=== PATIENT | female | born 1945 | race Two or more races ===

== ENCOUNTER 2017-07-25 14:17 | Outpatient (CLI) | payer MEDICARE, OTHER ==
[~2017-07-25 14:17] MED LIST: BACTRIM SINGLE S1 EA ORAL; CALCIUM500 M3 PO; IBANDRONATE SO150 MG PO; IRON18 M1 PO; PROAIR HFA8.5 GM INH; VITAMIN D400 INTLU PO
[2017-07-25] MEDS ORDERED: OYSCO 500+D TA1 EAC1 PO (14:32)
[2017-07-25] MEDS ORDERED: FOSAMAX70 MG ORAL (14:32)
[2017-07-25] MEDS ORDERED: VITAMIN C500 M1 ORAL (14:32)
[2017-07-25] MEDS ORDERED: LEFLUNOMIDE10 MG PO (14:32)
[2017-07-25 14:33] VITALS: BP 130/74
--- NOTE | 2017-07-25 14:54 | GI Initial Consult Note ---
History of Present Illness General Date patient seen: Jul 25, 2017 Time patient seen: 14:45 Referring physician: DAVID JOSE Reason for Consultation: ANEMIA / COLONOSCOPY Present Illness HPI 72 year old female patient referred by Dr. Jose for routine colonoscopy screening. The patients last EGD/colonoscopy performed on 03/14/13, see summary below. She presents today with c/o of foul taste in her mouth everyday, but denies any acid reflux. Denies any weight loss or changes in dietary habits. Was recently dc'd off of iron pills because her anemia has stabilized. DATE OF PROCEDURE: 03/14/2013 SURGEON: LILLI ORANTES MD PROCEDURE: UPPER ENDOSCOPY WITH BIOPSY AND COLONOSCOPY WITH SNARE POLYPECTOMY AND BIOPSY. SUMMARY OF FINDINGS: 1. Gastritis status post biopsy. 2. One colonic polyp removed, see above for details. 3. Diverticulosis of the left colon. 4. Internal hemorrhoids. RECOMMENDATIONS: 1. Follow up biopsy results and treat accordingly. 2. Will recommend repeat colonoscopy in 5 years. Home Meds Reported Medications Alendronate Sodium* (FOSAMAX*) 70 Mg Tablet, 70 MG ORAL ONCE A WEEK, TAB 07/25/17 Ascorbic Acid* (VITAMIN C*) 500 Mg Tablet, 500 MG ORAL DAILY, #30 TAB 0 Refills 07/25/17 Leflunomide (LEFLUNOMIDE) 10 Mg Tablet, 10 MG PO DAILY, TAB 07/25/17 Calcium Carbonate/Vitamin D3 (OYSCO 500+D TABLET) 1 Each Tablet, 1 EACH PO DAILY , TAB 07/25/17 Discontinued Reported Medications Ibandronate Sodium (IBANDRONATE SODIUM) 150 Mg Tablet, 150 MG PO EVERY MONTH, TAB 11/20/13 Calcium Carbonate (CALCIUM) 500 Mg Tab.chew, 500 MG PO 03/14/13 Vitamin D (Vitamin D3) 400 Intlu Cap, 400 INTLU PO DAILY 03/14/13 Iron (IRON) 18 Mg Tablet, 18 MG PO 03/14/13 Discontinued Scripts Trimethoprim/Sulfamethoxazole (Bactrim 400-80 mg Tablet) 1 Ea Tab, 1 TAB ORAL TWICE A DAY for 5 Days, TAB Prov:Theresa Goode [employer] 10/26/15 Med list reviewed/reconciled: Yes Allergies: Coded Allergies: TRAMADOL (Verified Allergy, 03/14/13) vomiting Patient History History Provided By: Patient, Medical Record PMH Narrative Anemia RA Gastritis with history of H. pylori s/p tx in 2012 PSHx cholecystectomy hysterectomy with ovarian removal. Rt Breast lump Family History Narrative Sister, kidney CA Social History: Denies: smoking, alcohol use, drug use, other Review of Systems All Other Systems: negative except mentioned in HPI Physical Exam Vital Signs Date Time Temp Pulse Resp B/P (MAP) Pulse Ox O2 Delivery O2 Flow Rate FiO2 07/25/17 14:33 97.5 64 16 130/74 Sp02 EP Interpretation: reviewed General Appearance: well appearing, no apparent distress, alert Head: normocephalic EENT: PERRL/EOMI, normal ENT inspection Neck: supple Respiratory: normal breath sounds, no respiratory distress Cardiovascular: normal rate Gastrointestinal: normal inspection, non tender, soft Genitourinary: normal inspection Musculoskeletal: normal inspection Neurologic: normal inspection, alert, oriented x3, responsive Psychiatric: normal inspection, judgement/insight normal, memory normal Skin: normal inspection, normal color, no rash, warm/dry, palpation normal Lymphatic: normal inspection, no adenopathy GI: Plan Problems: (1) Breath, foul (2) GERD (gastroesophageal reflux disease) (3) Colonoscopy planned Plan anemia >> resolved, now off iron pills s/p EGD/colonoscopy in March 2013 H. Pylori positive s/p tx sour taste in mouth most likely from current medication consider OTC H2B if patient is symptomatic for acid reflux RTC prn repeat colon March [address] Orantes. Thank you for referring this patient, we will follow. Haven Orlando N.P. Jul 25, 2017 14:54
== END 2017-07-25 14:45 | disposition home or self-care (01) ==
LOC: PAN 14:17
DX: K21.9 Gastro-esophageal reflux disease without esophagitis (principal); R19.6 Halitosis; Z86.010 Personal history of colon polyps; K57.90 Diverticulosis of intestine, part unspecified, without perforation or abscess without bleeding; M06.9 Rheumatoid arthritis, unspecified; D64.9 Anemia, unspecified; Z90.49 Acquired absence of other specified parts of digestive tract; Z90.710 Acquired absence of both cervix and uterus; Z90.721 Acquired absence of ovaries, unilateral; Z80.51 Family history of malignant neoplasm of kidney
CPT/HCPCS: 99201

== ENCOUNTER 2017-10-30 11:59 | Emergency (ER) | payer MEDICARE, MEDICAID ==
[~2017-10-30] VITALS: Ht 152.4 cm; Wt 73.9 kg
[~2017-10-30 11:59] MED LIST changes: +FOSAMAX70 MG ORAL; +LEFLUNOMIDE10 MG PO; +OYSCO 500+D TA1 EAC1 PO; +VITAMIN C500 M1 ORAL
[2017-10-30] MEDS ORDERED: IBUPROFEN600 MG ORAL (12:11)
[2017-10-30 12:30] VITALS: BP 147/107
--- NOTE | 2017-10-30 12:39 | Emergency Room Report ---
History of Present Illness General Chief Complaint: Abdominal Pain Source: Patient Present Illness HPI Patient is 72 female presented after increased left-sided abdominal pain. Patient gradual onset of symptoms. Patient reports having recent fevers and chills. She had not been vomiting. She reports having some loose stools initially however this become normal. She denied recent antibiotic use. She had prior history of laparoscopic cholecystectomy as well as hysterectomy. Allergies: Coded Allergies: TRAMADOL (Verified Allergy, 03/14/13) vomiting Patient History Past Medical History: see triage record Reviewed Nursing Documentation: PMH: Agreed, PSxH: Agreed Nursing Documentation-PMH Hx Cancer: No Hx Gastrointestinal Problems: Yes Hx Neurological Problems: No Review of Systems All Other Systems: negative except mentioned in HPI Physical Exam Vital Signs Date Time Temp Pulse Resp B/P (MAP) Pulse Ox O2 Delivery O2 Flow Rate FiO2 10/30/17 12:03 99.1 114 18 135/81 96 Room Air Sp02 EP Interpretation: reviewed, normal General Appearance: normal inspection, well appearing, no apparent distress, alert, GCS 15, non-toxic Head: atraumatic ENT: normal ENT inspection, hearing grossly normal, normal voice Neck: normal inspection, full range of motion, supple, no bony tend Respiratory: normal inspection, lungs clear, normal breath sounds, no respiratory distress, no retraction, no wheezing Cardiovascular #1: regular rate, rhythm, no edema Gastrointestinal: normal inspection, normal bowel sounds, soft, no guarding, no hernia, no pulsatile mass, no rebound, tenderness - left lower abdomen Genitourinary: no CVA tenderness Musculoskeletal: normal inspection, back normal, normal range of motion Neurologic: normal inspection, alert, oriented x3, responsive, gum cook III-XII nml as tested, speech normal Psychiatric: normal inspection, judgement/insight normal, mood/affect normal Skin: normal inspection, normal color, no rash Medical Decision Making Diagnostic Impression: Primary Impression: Diverticulitis ER Course Patient presented for abdominal pain. Differential diagnoses included ischemic bowel, appendicitis, perforated viscus, abdominal aortic aneurysm, inferior myocardial infarction, viral gastroenteritis Because of complexity of patient's case laboratory testing and imaging studies were ordered. Laboratory testing was unremarkable. The urinalysis showed no evident infection. CT the head and pelvis read by radiology showed sigmoid diverticulitis. The patient was given prescription for oral pain medication she does not appear to require hospitalization at this time. Patient was advised to return if she began having increased pain persistent vomiting or other concerns. She is advised to followup with Dr. Lorenzo in the next few days Labs Test 10/30/17 12:50 10/30/17 14:36 White Blood Count 9.7 K/UL (4.8-10.8) Red Blood Count 4.21 M/UL (4.20-5.40) Hemoglobin 12.4 G/DL (12.0-16.0) Hematocrit 39.6 % (37.0-47.0) Mean Corpuscular Volume 94 FL (80-99) Mean Corpuscular Hemoglobin 29.6 PG (27.0-31.0) Mean Corpuscular Hemoglobin Concent 31.4 G/DL (32.0-36.0) Red Cell Distribution Width 13.2 % (11.6-14.8) Platelet Count 329 K/UL (150-450) Mean Platelet Volume 8.1 FL (6.5-10.1) Neutrophils (%) (Auto) 75.3 % (45.0-75.0) Lymphocytes (%) (Auto) 14.0 % (20.0-45.0) Monocytes (%) (Auto) 8.5 % (1.0-10.0) Eosinophils (%) (Auto) 1.5 % (0.0-3.0) Basophils (%) (Auto) 0.8 % (0.0-2.0) Prothrombin Time 10.0 SEC (9.30-11.50) Prothromb Time International Ratio 1.0 (0.9-1.1) Activated Partial Thromboplast Time 26 SEC (23-33) Sodium Level 139 MMOL/L (136-145) Potassium Level 4.0 MMOL/L (3.5-5.1) Chloride Level 102 MMOL/L (98-107) Carbon Dioxide Level 31 MMOL/L (21-32) Anion Gap 6 mmol/L (5-15) Blood Urea Nitrogen 13 mg/dL (7-18) Creatinine 0.9 MG/DL (0.55-1.30) Estimat Glomerular Filtration Rate mL/min (>60) Glucose Level 123 MG/DL (74-106) Lactic Acid Level 1.40 mmol/L (0.66-2.22) Calcium Level 8.9 MG/DL (8.5-10.1) Phosphorus Level 2.7 MG/DL (2.5-4.9) Magnesium Level 2.4 MG/DL (1.8-2.4) Total Bilirubin 0.3 MG/DL (0.2-1.0) Aspartate Amino Transf (AST/SGOT) 13 U/L (15-37) Alanine Aminotransferase (ALT/SGPT) 21 U/L (12-78) Alkaline Phosphatase 67 U/L (46-116) Total Creatine Kinase 38 U/L (26-308) Creatine Kinase MB < 0.5 NG/ML (0.0-3.6) Creatine Kinase MB Relative Index 1.3 Troponin I 0.000 ng/mL (0.000-0.056) Total Protein 8.0 G/DL (6.4-8.2) Albumin 3.5 G/DL (3.4-5.0) Globulin 4.5 g/dL Albumin/Globulin Ratio 0.8 (1.0-2.7) Urine Color Pale yellow Urine Appearance Clear Urine pH 8 (4.5-8.0) Urine Specific Britt 1.010 (1.005-1.035) Urine Protein Negative (NEGATIVE) Urine Glucose (UA) Negative (NEGATIVE) Urine Ketones Negative (NEGATIVE) Urine Occult Blood Negative (NEGATIVE) Urine Nitrite Negative (NEGATIVE) Urine Bilirubin Negative (NEGATIVE) Urine Urobilinogen Normal MG/DL (0.0-1.0) Urine Leukocyte Esterase Negative (NEGATIVE) Last Vital Signs Date Time Temp Pulse Resp B/P (MAP) Pulse Ox O2 Delivery O2 Flow Rate FiO2 10/30/17 12:03 99.1 114 18 135/81 96 Room Air Status: improved Disposition: HOME, SELF-CARE Condition: Stable Scripts Ciprofloxacin Hcl* (CIPROFLOXACIN HCL*) 500 Mg Tablet 500 MG ORAL Q12H, #14 TAB 0 Refills Prov: David Pham 10/30/17 Metronidazole* (FLAGYL*) 500 Mg Tablet 500 MG ORAL BID, #14 TAB Prov: David Pham 10/30/17 Dicyclomine Hcl* (BENTYL*) 10 Mg Capsule 10 MG ORAL FOUR TIMES A DAY, #20 CAP Prov: David Pham 10/30/17 David Pham Oct 30, 2017 12:39
[2017-10-30] MEDS ORDERED: Dicyclomine HCl 10mg/5ml oral soln ORAL ONE (13:15)
[2017-10-30 13:22] LABS: BASOPHILS % (AUTO) 0.8 % (0.0-2.0); EOSINOPHILS % (AUTO) 1.5 % (0.0-3.0); MEAN CORPUSCULAR HEMOGLOBIN 29.6 PG (27.0-31.0); MEAN CORPUSCULAR HGB CONC 31.4 G/DL (32.0-36.0); MEAN CORPUSCULAR VOLUME 94 FL (80-99); MEAN PLATELET VOLUME 8.1 FL (6.5-10.1); MONOCYTES % (AUTO) 8.5 % (1.0-10.0); NEUTROPHILS % (AUTO) 75.3 % (45.0-75.0); PLATELET COUNT 329 K/UL (150-450); RED BLOOD COUNT 4.21 M/UL (4.20-5.40); RED CELL DISTRIBUTION WIDTH 13.2 % (11.6-14.8); WHITE BLOOD COUNT 9.7 K/UL (4.8-10.8)
[2017-10-30 13:30] VITALS: BP 145/75
[2017-10-30 13:40] LABS: ANION GAP 6 mmol/L (5-15); CALCIUM 8.9 MG/DL (8.5-10.1); CARBON DIOXIDE 31 MMOL/L (21-32); CHLORIDE 102 MMOL/L (98-107); CREATININE 0.9 MG/DL (0.55-1.30); SODIUM 139 MMOL/L (136-145)
[2017-10-30 13:54] LABS: ALANINE AMINOTRANSFERASE 21 U/L (12-78); ALBUMIN/GLOBULIN RATIO 0.8 (1.0-2.7); ASPARTATE AMINO TRANSFERASE 13 U/L (15-37); CKMB < 0.5 NG/ML (0.0-3.6); MAGNESIUM 2.4 MG/DL (1.8-2.4); PHOSPHORUS 2.7 MG/DL (2.5-4.9)
[2017-10-30 14:50] LABS: APPEARANCE,URINE CLEAR; KETONES,URINE NEGATIVE (NEGATIVE); LEUKOCYTE ESTERASE ,URINE NEGATIVE (NEGATIVE); NITRITE,URINE NEGATIVE (NEGATIVE); PH,URINE 8 (4.5-8.0); PROTEIN,URINE NEGATIVE (NEGATIVE); UROBILINOGEN,URINE NORMAL MG/DL (0.0-1.0)
[2017-10-30] MEDS ORDERED: BENTYL10 MG ORAL (14:58)
[2017-10-30 15:00] VITALS: BP 149/74
[2017-10-30] MEDS ORDERED: METRONIDAZOLE500 MG ORAL (15:21)
[2017-10-30] MEDS ORDERED: CIPROFLOXACIN500 M2 ORAL (15:25)
[2017-10-30 15:57] VITALS: BP 148/86
[2017-10-30 16:01] VITALS: BP 148/86
--- NOTE | 2017-10-31 10:26 | Diagnostic Imaging Report ---
Indication: Abdominal pain Technique: Continuous helical transaxial imaging of the abdomen and pelvis was obtained from the lung bases to the pubic symphysis during intravenous contrast administration. Coronal 2-D reformats were also obtained. Study obtained in a Siemens sensation [address] Automatic Exposure Control was utilized. Total Dose length Product (DLP): 1001.[address] Dose Index Volume (CTDIvol): 19.75 mGy Comparison: 10/24/2015 Findings: There is thickening of the wall and perisigmoid soft tissue stranding consistent with inflammation and acute diverticulitis. There is no abscess identified. Extensive diverticula noted throughout. A single surgical clip is noted in the right lower quadrant likely associated with previous appendectomy. Urinary bladder is nondistended. There is no free fluid. Aortoiliac calcifications noted. Liver is low in attenuation. Cholecystectomy clips noted. No hydronephrosis demonstrated. IMPRESSION: Acute sigmoid diverticulitis. No abscess. Other findings as above. [facility] has communicated the preliminary results to the Emergency Department. Their findings are largely concordant with this report. The CT scanner at [facility] is accredited by the [employer] and the scans are performed using dose optimization techniques as appropriate to a performed exam including Automatic Exposure control.
--- NOTE | 2017-10-31 13:20 | Diagnostic Imaging Report ---
Indication: Dyspnea Comparison: None A single view chest radiograph was obtained. Findings: Lungs are clear. Heart is borderline enlarged. The aorta is ectatic. Bones are slightly osteopenic. IMPRESSION: No acute disease
--- NOTE | 2017-11-05 00:30 | Cardiology Report ---
APPROVED REPORT EKG Measurement Heart [id number] Sinus tachycardia Rightward axis Borderline ECG
== END 2017-10-30 15:41 | disposition home or self-care (01) ==
LOC: EMR 12:30
DX: K57.32 Diverticulitis of large intestine without perforation or abscess without bleeding (principal)
CPT/HCPCS: 36415; 71010; 74177; 80053; 81003; 82550; 82553; 83605; 83735; 84100; 84484; 85025; 85610; 85730; 86710; 87040; 93005; 99284; Q9967

== ENCOUNTER 2017-11-13 13:53 | Emergency (ER) | payer MEDICARE, MEDICAID ==
[~2017-11-13] VITALS: Ht 157.5 cm; Wt 74.8 kg
[~2017-11-13 13:53] MED LIST changes: +BENTYL10 MG ORAL; +CIPROFLOXACIN500 M2 ORAL; +IBUPROFEN600 MG ORAL; +METRONIDAZOLE500 MG ORAL
[2017-11-13 14:03] VITALS: BP 134/80
--- NOTE | 2017-11-13 14:12 | Emergency Room Report ---
History of Present Illness General Chief Complaint: Upper Respiratory Illness Source: Patient, Family Member Present Illness HPI 72-year-old female walked in with one week of cough. No associated fever or chills, no chest pain or shortness of breath. Son brought mother in because of audible wheezing since last night. No history of COPD or asthma. Patient has been on antibiotics and cough medicine and albuterol for 4 days from primary care doctor. No recent hospitalizations or admission. Patient up to date on vaccines. Allergies: Coded Allergies: TRAMADOL (Verified Allergy, 03/14/13) vomiting Patient History Past Medical History: see triage record Past Surgical History: none Pertinent Family History: none Social History: Denies: smoking, alcohol use, drug use Now: No Immunizations: UTD Reviewed Nursing Documentation: PMH: Agreed, PSxH: Agreed Nursing Documentation-PMH Hx Cancer: No Hx Gastrointestinal Problems: Yes Hx Neurological Problems: No Review of Systems All Other Systems: negative except mentioned in HPI Physical Exam Vital Signs Date Time Temp Pulse Resp B/P (MAP) Pulse Ox O2 Delivery O2 Flow Rate FiO2 11/13/17 14:03 Room Air Sp02 EP Interpretation: reviewed, normal General Appearance: normal inspection, well appearing, no apparent distress, alert, GCS 15, non-toxic Head: normocephalic, atraumatic Eyes: bilateral eye PERRL, bilateral eye EOMI ENT: normal ENT inspection, hearing grossly normal, normal pharynx, no angioedema, normal voice, TMs + canals normal, uvula midline, moist mucus membranes Neck: normal inspection, full range of motion, supple, thyroid normal, no meningismus, no bony tend Respiratory: normal inspection, lungs clear, normal breath sounds, no rhonchi, no respiratory distress, no retraction, no accessory muscle use, speaking full sentences, wheezing Cardiovascular #1: regular rate, rhythm, no edema, no JVD, normal capillary refill Gastrointestinal: normal inspection, normal bowel sounds, non tender, soft, no mass, no peritonitis, non-distended, no guarding, no hernia, no pulsatile mass Genitourinary: no CVA tenderness Musculoskeletal: normal inspection, back normal, normal range of motion, no calf tenderness, pelvis stable, Mendy's Sign negative Neurologic: normal inspection, alert, oriented x3, responsive, school janitor III-XII nml as tested, motor strength/tone normal, cerebellar normal, normal gait, speech normal Psychiatric: normal inspection, judgement/insight normal, mood/affect normal, no suicidal/homicidal ideation, no delusions Skin: normal inspection, normal color, no rash Lymphatic: normal inspection, no adenopathy Medical Decision Making Diagnostic Impression: Primary Impression: Upper respiratory infection Qualified Codes: J06.9 - Acute upper respiratory infection, unspecified Additional Impression: Bronchitis ER Course 72-year-old female with cough for one week, now with wheezing. Vital signs stable, no hypoxemia, afebrile, normotensive. Patient well-appearing, walked in to ER. No leukocytosis Labs otherwise unremarkable CXR negative for pneumonia feels better after nebulizer treatment already on antibiotics, and a cough medicine, and albuterol for wheezing no signs stable, afebrile Nonseptic appearing Has close care by family member at home Advise PMD followup in one to 2 days yo M F with DDX: Plan: Obtain labs, ua, ucx, ucg, CXR, EKG ER course: Patient has remained stable during ED stay. Disposition: Patient is to be discharged to home. Patient is instructed to follow up with their primary care doctor within 1-2 days. Strict return precautions discussed with patient such as fever, chills, worsening/severe pain, nausea, vomiting, which may indicate severe illness. Patient verbalizes understanding and agrees with plan. Please note that this Emergency Department Report was dictated using [employer] and gas lease pumper technology software, occasionally this can lead to erroneous entry secondary to interpretation by the dictation equipment Rhythm Strip Diag. Results EP Interpretation: yes Rate: 85 Rhythm: NSR, no PVC's, no ectopy Chest X-Ray Diagnostic Results Chest X-Ray Diagnostic Results : Chest X-Ray Ordered: Yes # of Views/Limited/Complete: 1 View Indication: Other - Wheezing EP Interpretation: Yes Interpretation: no consolidation, no effusion, no pneumothorax, no acute cardiopulmonary disease Impression: No acute disease Electronically Signed by: Dr Shadi Johnson MD Last Vital Signs Date Time Temp Pulse Resp B/P (MAP) Pulse Ox O2 Delivery O2 Flow Rate FiO2 11/13/17 14:03 Room Air Status: improved Disposition: HOME, SELF-CARE Condition: Improved SHADI JOHNSON M.D. Nov 13, 2017 14:12
[2017-11-13 14:27] LABS: BASOPHILS % (AUTO) 2.3 % (0.0-2.0); EOSINOPHILS % (AUTO) 10.7 % (0.0-3.0); HEMATOCRIT 35.3 % (37.0-47.0); HEMOGLOBIN 11.4 G/DL (12.0-16.0); LYMPHOCYTES % (AUTO) 18.2 % (20.0-45.0); MEAN CORPUSCULAR VOLUME 92 FL (80-99); MONOCYTES % (AUTO) 15.6 % (1.0-10.0); NEUTROPHILS % (AUTO) 53.2 % (45.0-75.0); PLATELET COUNT 326 K/UL (150-450); RED BLOOD COUNT 3.82 M/UL (4.20-5.40); RED CELL DISTRIBUTION WIDTH 13.4 % (11.6-14.8)
[2017-11-13] MEDS ORDERED: albuterol PO (14:30)
[2017-11-13] MEDS ORDERED: PHENERGAN6.25 MG/5 ORAL (14:30)
[2017-11-13] MEDS ORDERED: AMOX TR-K CLV1 EAC1 ORAL (14:30)
[2017-11-13] MEDS ORDERED: APRODINE TABLE1 EACH PO (14:31)
[2017-11-13 14:37] LABS: ANION GAP 10 mmol/L (5-15); BLOOD UREA NITROGEN 10 mg/dL (7-18); CALCIUM 7.5 MG/DL (8.5-10.1); CARBON DIOXIDE 26 MMOL/L (21-32); CHLORIDE 101 MMOL/L (98-107); CREATININE 0.9 MG/DL (0.55-1.30); POTASSIUM 3.9 MMOL/L (3.5-5.1); SODIUM 137 MMOL/L (136-145)
[2017-11-13 14:42] LABS: ALANINE AMINOTRANSFERASE 35 U/L (12-78); ALBUMIN 3.6 G/DL (3.4-5.0); ALBUMIN/GLOBULIN RATIO 0.8 (1.0-2.7); ALKALINE PHOSPHATASE 65 U/L (46-116); ASPARTATE AMINO TRANSFERASE 25 U/L (15-37); BILIRUBIN,TOTAL 0.2 MG/DL (0.2-1.0)
[2017-11-13] MEDS ORDERED: PREDNISONE20 MG ORAL (14:58)
[2017-11-13] MEDS ORDERED: VENTOLIN HFA18 GM INH (15:01)
[2017-11-13 15:12] VITALS: BP 134/80
[2017-11-13] MEDS ORDERED: Albuterol/Ipratropium 3ml neb HHN SCH (19:00)
--- NOTE | 2017-11-14 09:15 | Diagnostic Imaging Report ---
Indication: Reason For Exam: SOB Technique: One view of the chest Comparison: 10/30/2017 Findings: Lungs and pleural spaces are clear. Heart size is normal. Aorta is slightly tortuous and calcified. Findings are unchanged Impression: No acute process
== END 2017-11-13 15:12 | disposition home or self-care (01) ==
LOC: EMR 14:25
DX: J06.9 Acute upper respiratory infection, unspecified (principal); J40 Bronchitis, not specified as acute or chronic
CPT/HCPCS: 36415; 71010; 80053; 85025; 94640; 94664; 99283; J7512; J7620

== ENCOUNTER 2019-02-28 13:00 | Outpatient (CLI) | payer MEDICARE, MEDICAID ==
[~2019-02-28 13:00] MED LIST changes: +AMOX TR-K CLV1 EAC1 ORAL; +APRODINE TABLE1 EACH PO; +PHENERGAN6.25 MG/5 ORAL; +PREDNISONE20 MG ORAL; +VENTOLIN HFA18 GM INH; +albuterol PO
--- NOTE | 2019-02-28 15:17 | General Progress Note ---
Assessment/Plan Problem List: (1) Anemia ICD Codes: D64.9 - Anemia, unspecified SNOMED: 167421884 (2) Diverticulitis ICD Codes: K57.92 - Diverticulitis of intestine, part unspecified, without perforation or abscess without bleeding SNOMED: 396985000 (3) Abdominal pain ICD Codes: R10.9 - Unspecified abdominal pain SNOMED: 96492228 (4) GERD (gastroesophageal reflux disease) ICD Codes: K21.9 - Gastro-esophageal reflux disease without esophagitis SNOMED: 937837016 Diagnoses Results of Pharmacotherapy: plan EGD and colonoscopy Subjective ROS Limited/Unobtainable: Yes Allergies: Coded Allergies: TRAMADOL (Verified Allergy, 03/14/13) vomiting Objective General Appearance: alert EENT: normal ENT inspection Neck: supple Cardiovascular: normal rate Respiratory/Chest: lungs clear Abdomen: normal bowel sounds, non tender, soft Extremities: non-tender Carlo Zaldivar MD Feb 28, 2019 15:17
[2019-02-28 16:03] VITALS: BP 126/76
[2019-03-01] MEDS ORDERED: TYLENOL EXTRA500 MG ORAL (10:11)
[2019-03-01] MEDS ORDERED: AMLODIPINE BESYL5 MG ORAL (10:11)
[2019-03-01] MEDS ORDERED: OMEPRAZOLE40 M1 ORAL (10:11)
== END 2019-02-28 16:19 | disposition home or self-care (01) ==
LOC: PAN 13:00
DX: D64.9 Anemia, unspecified (principal); K57.92 Diverticulitis of intestine, part unspecified, without perforation or abscess without bleeding; R10.9 Unspecified abdominal pain; K21.9 Gastro-esophageal reflux disease without esophagitis; Z88.8 Allergy status to other drugs, medicaments and biological substances
CPT/HCPCS: 99212

== ENCOUNTER 2019-03-07 07:07 | Day surgery (SDC) | payer MEDICARE, MEDICAID ==
[2019-03-07] VITALS (9 sets, daily range): BP systolic 100–139; BP diastolic 62–79
[~2019-03-07] VITALS: Ht 149.9 cm; Wt 79.4 kg
[~2019-03-07 07:07] MED LIST changes: +AMLODIPINE BESYL5 MG ORAL; +OMEPRAZOLE40 M1 ORAL; +TYLENOL EXTRA500 MG ORAL
[2019-03-07] MEDS ORDERED: Midazolam 2mg/2ml Inj IVP PRN (07:45)
[2019-03-07] MEDS ORDERED: DiphenhydrAMINE 50mg/ml Inj IVP PRN (07:45)
[2019-03-07] MEDS ORDERED: LR 1000ml 1,000 ML IVLG SCH (07:45)
[2019-03-07] MEDS ORDERED: LORazepam Inj 2mg/ml 1ml IV PRN (07:45)
--- NOTE | 2019-03-07 07:45 | Anethesia Preoperative Eval ---
Anesthesia Pre-op PMH/ROS General Date of Evaluation: Mar 07, 2019 Anesthesiologist: Surya ASA Score: ASA 3 Mallampati Score Class I : Soft palate, uvula, fauces, pillars visible Class II: Soft palate, uvula, fauces visible Class III: Soft palate, base of uvula visible Class IV: Only hard plate visible Mallampati Classification: Class III Surgeon: Zen Diagnosis: ABdominal pain, GERD Surgical Procedure: EGD and colonoscopy Anesthesia History: none Family History: no anesthesia problems Allergies: Coded Allergies: TRAMADOL (Verified Allergy, 03/14/13) vomiting Medications: see eMAR Patient NPO?: Yes NPO Date: Mar 06, 2019 NPO Time: 22:00 Past Medical History Cardiovascular: Denies: HTN, CAD, SC, valve dz, arrhythmia, other Pulmonary: Denies: asthma, COPD, ALTON, other Gastrointestinal/Genitourinary: Reports: GERD, other - gastritis; Denies: CRI, ESRD Neurologic/Psychiatric: Denies: dementia, CVA, depression/anxiety, TIA, other Endocrine: Denies: DM, hypothyroidism, steroids, other HEENT: Reports: cataract (L); Denies: cataract (R), glaucoma, LUMBEE (L), LUMBEE (R), other Hematology/Immune: Reports: anemia - chronic; Denies: DVT, bleeding disorder, other Musculoskeletal/Integumentary: Reports: OA, RA, DJD; Denies: DDD, edema, other PSxH Narrative: lap yanira, lap appy right breast lumpectomy, ANDRZEJ/BSO Anesthesia Pre-op Phys. Exam Physician Exam see chart Constitutional: NAD Cardiovascular: RRR Respiratory: CTA Airway Exam Mallampati Score: Class III Anesthesia Pre-op A/P Labs see chart Studies Pre-op Studies: EKG - sr Risk Assessment & Plan Assessment: ASA III Plan: MAC Status Change Before Surgery: No Pre-Antibiotics Drug: N/A Katerine Giraldo MD Mar 07, 2019 07:45
[2019-03-07] MEDS ORDERED: LR 1000ml ONE (09:00)
[2019-03-07] MEDS ORDERED: Propofol 200mg/20ml IV ONE (09:00)
[2019-03-07] MEDS ORDERED: Lidocaine 1% MPF 10mg/ml 5ml ONE (09:00)
--- NOTE | 2019-03-07 09:07 | Short Stay Surgery H&P ---
History of Present Illness History of Present Illness Chief Complaint see recent office note DHRUV Hein is a 73 year old female who was admitted on for Abdominal Pain, Gerd Patient History Allergies: Coded Allergies: TRAMADOL (Verified Allergy, 03/14/13) vomiting Medication History Scheduled Alendronate Sodium* (Fosamax*), 70 MG ORAL ONCE A WEEK, (Reported) Amlodipine Besylate* (Amlodipine Besylate*), 5 MG ORAL DAILY, (Reported) Ascorbic Acid* (Vitamin C*), 500 MG ORAL DAILY, (Reported) Calcium Carbonate/Vitamin D3 ([place] 500+D Tablet), 1 EACH PO DAILY, (Reported) Leflunomide (Leflunomide), 10 MG PO DAILY, (Reported) Omeprazole (Omeprazole), 40 MG ORAL DAILY, (Reported) Scheduled PRN Acetaminophen* (Tylenol Extra Strength*), 1,000 MG ORAL Q8H PRN for Prn Headache /Temp > 101, (Reported) Discontinued Medications Albuterol Sulfate (Ventolin Hfa), 1 PUFF INH EVERY 6 HOURS Discontinued Reason: MD discontinued med Amoxicillin/Potassium Clav 500-125 Mg Tab* (Amox Tr-K Clv 500-125 Mg Tab*), 1 TAB ORAL TID, (Reported) Discontinued Reason: Therapy completed Ciprofloxacin Hcl* (Ciprofloxacin Hcl*), 500 MG ORAL Q12H Discontinued Reason: Therapy completed Dicyclomine Hcl* (Bentyl*), 10 MG ORAL FOUR TIMES A DAY Discontinued Reason: MD discontinued med Ibuprofen* (Motrin*), 400 MG ORAL TID, (Reported) Discontinued Reason: Pt stopped taking med Metronidazole* (Flagyl*), 500 MG ORAL BID Discontinued Reason: Therapy completed P-Ephed Hcl/Triprolidine Hcl (Aprodine Tablet), 1 EACH PO THREE TIMES A DAY, ( Reported) Discontinued Reason: MD discontinued med Prednisone* (Prednisone*), 40 MG ORAL DAILY Discontinued Reason: MD discontinued med Promethazine/Dextromethorphan (Promethazine-Dm Syrup), 1 TSP ORAL Q6H PRN for For Cough, (Reported) Discontinued Reason: MD discontinued med Physical Exam Vital Signs Last Vital Signs Date Time Temp Pulse Resp B/P (MAP) Pulse Ox O2 Delivery O2 Flow Rate FiO2 03/07/19 08:43 Room Air 03/07/19 08:07 97.8 68 18 130/79 95 Plan Attestation Are the patient's medical conditions optimized for surgery? Carlo Zaldivar MD Mar 07, 2019 09:07
--- NOTE | 2019-03-07 09:07 | Pre-Procedure Note/Attestation ---
Pre-Procedure Note/Attestation Complete Prior to Procedure Planned Procedure: not applicable Procedure Narrative: esophagogastroduodenoscopy and colonoscopy Indications for Procedure Pre-Operative Diagnosis: screening colon, GERD Attestation I attest that I discussed the nature of the procedure; its benefits; risks and complications; and alternatives (and the risks and benefits of such alternatives ), prior to the procedure, with the patient (or the patient's legal claims customer service representative). I attest that, if there was a reasonable possibility of needing a blood transfusion, the patient (or the patient's legal claims customer service representative) was given the [facility] standardized written summary, pursuant to the [place] Blood Safety Act ([place] Health and Safety Code # 1645, as amended). I attest that I re-evaluated the patient just prior to the surgery and that there has been no change in the patient's H&P, except as documented below: Carlo Zaldivar MD Mar 07, 2019 09:07
--- NOTE | 2019-03-07 09:53 | Endoscopy Procedure Note ---
Endoscopy Procedure Note General Indication for Procedure: anemia Procedures Performed: EGD, colonoscopy Operative Findings/Diagnosis: gastritis, diverticulosis Specimen: yes Pt Tolerated Procedure Well: Yes Estimated Blood Loss: none Anesthesia Anesthesiologist: liam Anesthesia: MAC Inserted Devices Implant(s) used?: No Quality Quality of Bowel Preparation: Good Did scope reach the cecum?: Yes Was there any complications?: No GI Core Measures 50 yrs or older w/o bx or poly: No 10yrs. F/U not recommended: No 10 yrs. F/U needed: Yes 18 years or older w/prev. colo: Yes <3yrs. since last colonoscopy: No Carlo Zaldivar MD Mar 07, 2019 09:53
--- NOTE | 2019-03-07 09:53 | Immediate Post-Op Evaluation ---
Immediate Post-Op Evalulation Immediate Post-Op Evalulation Procedure: EGd and colonoscopy Date of Evaluation: Mar 07, 2019 Time of Evaluation: 09:54 IV Fluids: 500 Blood Products: 0 Estimated Blood Loss: 0 Urinary Output: 0 Blood Pressure Systolic: 128 Blood Pressure Diastolic: 76 Pulse Rate: 78 Respiratory Rate: 16 O2 Sat by Pulse Oximetry: 100 Temperature (Fahrenheit): 97.7 Pain Score (1-10): 0 Nausea: No Vomiting: No Complications 0 Patient Status: awake, reacts, patent, none Hydration Status: adequate Drug: N/A Katerine Giraldo MD Mar 07, 2019 09:53
--- NOTE | 2019-03-07 09:53 | 48 Hour Post Anesthesia Eval ---
Post Anesthesia Evaluation Procedure: EGd and colonoscopy Date of Evaluation: Mar 07, 2019 Airway: patent Nausea: No Vomiting: No Pain Intensity: 0 Hydration Status: adequate Cardiopulmonary Status: at baseline Mental Status/LOC: patient returned to baseline Post-Anesthesia Complications: 0 Follow-up care needed: ready to discharge Katerine Giraldo MD Mar 07, 2019 09:53
--- NOTE | 2019-03-07 16:15 | Procedure Note ---
DATE OF PROCEDURE: 03/07/2019 SURGEON: Carlo Zaldivar M.D. REFERRING PHYSICIAN: Fahad Lorenzo M.D. PROCEDURE: Upper endoscopy with biopsy and colonoscopy with snare polypectomy. ANESTHESIA: Per Dr. [place]. INSTRUMENT: Olympus adult flexible upper endoscope and colonoscope. INDICATIONS: 1. Screening colonoscopy. 2. Anemia. 3. Chronic GERD. REASON FOR PROCEDURE: The procedure, risks, benefits, and possible consequences, including hemorrhage, aspiration, perforation and infection, and alternative treatments, were explained to the patient/legal guardian by Dr. Carlo Zaldivar and the patient/legal guardian understood and accepted these risks. PROCEDURE IN DETAIL: After informed consent was obtained and the patient was adequately sedated, Olympus upper endoscope was advanced from the mouth to the second portion of the duodenum and retroflexion was performed in the stomach. The patient had no evidence of any esophagitis. No hiatal hernia. In the stomach, there was diffuse gastritis. Random biopsy from antrum was obtained to rule out H. pylori infection. At this time, the upper endoscope was retrieved and the patient was turned over for colonoscopy. First, rectal exam was performed, which was normal. Then, the scope was advanced from the rectum into the cecum then subsequently to terminal ileum. Quality of prep was good. The patient has evidence of moderate diverticulosis, mostly in the left colon. No obvious active bleeding at this time. There was a polyp measured roughly about 3 mm in the ascending colon, which was removed with cold snare polypectomy technique. There was no further polyp seen in the examination. Retroflexion showed evidence of small nonbleeding internal hemorrhoids. SUMMARY OF FINDINGS: 1. Gastritis, status post biopsy. 2. Diverticulosis. 3. One colonic polyp removed, see above for details. 4. Small internal hemorrhoids. RECOMMENDATIONS: 1. Follow biopsy results. 2. The patient would need outpatient followup for further evaluation of the cause of anemia, most probably we are going to start with the stool studies. If it comes back positive, we will consider doing a capsule endoscopy. I want to thank, Dr. Lorenzo, for this kind referral. Carlo Zaldivar M.D. DR: CANDELARIA JOB#: [id number] CC: Fahad Lorenzo M.D.; Fax#: [phone]
--- NOTE | 2019-03-09 22:04 | Cardiology Report ---
APPROVED REPORT EKG Measurement Heart [id number] Normal sinus rhythm Right bundle branch block Cannot rule out Inferior infarct, age undetermined Abnormal ECG
== END 2019-03-07 11:10 | disposition home or self-care (01) ==
LOC: GAS 07:07
DX: D64.9 Anemia, unspecified (principal); K29.50 Unspecified chronic gastritis without bleeding; D12.2 Benign neoplasm of ascending colon; K21.9 Gastro-esophageal reflux disease without esophagitis; K57.90 Diverticulosis of intestine, part unspecified, without perforation or abscess without bleeding; K63.5 Polyp of colon; K64.8 Other hemorrhoids; Z88.8 Allergy status to other drugs, medicaments and biological substances; Z79.899 Other long term (current) drug therapy; Z90.49 Acquired absence of other specified parts of digestive tract; Z90.89 Acquired absence of other organs; M19.90 Unspecified osteoarthritis, unspecified site
CPT/HCPCS: 43239; 45385; 93005; J2704; 94003; 94150

== ENCOUNTER 2019-03-27 08:45 | Outpatient (CLI) | payer MEDICARE, MEDICAID ==
[2019-03-27 09:10] VITALS: BP 130/71
--- NOTE | 2019-03-27 09:55 | General Progress Note ---
Assessment/Plan Problem List: (1) GERD (gastroesophageal reflux disease) ICD Codes: K21.9 - Gastro-esophageal reflux disease without esophagitis SNOMED: 254640644 (2) Diverticulitis ICD Codes: K57.92 - Diverticulitis of intestine, part unspecified, without perforation or abscess without bleeding SNOMED: 300340900 (3) Anemia ICD Codes: D64.9 - Anemia, unspecified SNOMED: 393931355 Assessment/Plan: HP neg gastritis cont omeprazole EGD/Colonoscopy reviewed repeat colonoscopy 5 years Subjective ROS Limited/Unobtainable: Yes Allergies: Coded Allergies: TRAMADOL (Verified Allergy, 03/14/13) vomiting Objective General Appearance: alert EENT: normal ENT inspection Neck: supple Cardiovascular: regular rhythm Respiratory/Chest: lungs clear Abdomen: normal bowel sounds, non tender, soft Extremities: non-tender Carlo Zaldivar MD March 27, 2019 09:55
== END 2019-03-27 13:49 | disposition home or self-care (01) ==
LOC: PAN 08:45
DX: K21.9 Gastro-esophageal reflux disease without esophagitis (principal); K57.92 Diverticulitis of intestine, part unspecified, without perforation or abscess without bleeding; D64.9 Anemia, unspecified; Z88.8 Allergy status to other drugs, medicaments and biological substances; K29.70 Gastritis, unspecified, without bleeding

== ENCOUNTER 2019-09-27 07:33 | Emergency (ER) | payer MEDICARE, MEDICAID ==
[~2019-09-27] VITALS: Ht 154.9 cm; Wt 78.5 kg
[2019-09-27 07:55] VITALS: BP 139/79
[2019-09-27] MEDS ORDERED: Solu-MEDROL 125mg Inj IVP ONE (08:00)
[2019-09-27] MEDS ORDERED: DiphenhydrAMINE 50mg/ml Inj IVP ONE (08:00)
--- NOTE | 2019-09-27 08:01 | Emergency Room Report ---
History of Present Illness General Chief Complaint: Allergic Reaction Source: Patient, Family Member Present Illness HPI The patient was seen by her dentist for possible root canal surgery versus extraction. She was started on amoxicillin last night at 9:00. She had a second dose at 3. About an hour after taking the amoxicillin the first time she started having itching throughout her body. She denies any shortness of breath or wheezing. There is been no fevers. She felt some chills. She rates the pain in her tooth severe but will not give a number. Patient has rheumatoid arthritis and has been taking medication for this for 4 to 5 years. Medication is leflunomide. She is never had an allergic reaction before. No fevers, chills, sore throat, chest pain, palpitations, nausea, vomiting, diarrhea, dysuria, abdominal pain, joint pain changes, depression, anxiety, visual changes, dizziness, headache. Allergies: Coded Allergies: TRAMADOL (Verified Allergy, 03/14/13) vomiting Patient History Past Medical History: see triage record Social History: Denies: smoking, alcohol use, drug use Social History Narrative Brought by son Reviewed Nursing Documentation: PMH: Agreed; PSxH: Agreed Nursing Documentation-PMH Hx Cardiac Problems: No - spinal surgery Hx Hypertension: Yes Hx Cancer: No Hx Gastrointestinal Problems: Yes Hx Neurological Problems: Yes - spine dislocate ; Had epidural injection lumbar on 02/20/19 Review of Systems All Other Systems: negative except mentioned in HPI Physical Exam Vital Signs Date Time Temp Pulse Resp B/P (MAP) Pulse Ox O2 Delivery O2 Flow Rate FiO2 09/27/19 07:39 97.5 78 17 139/79 (99) 98 Room Air Sp02 EP Interpretation: reviewed, normal General Appearance: well appearing, no apparent distress, GCS 15 Head: normocephalic, atraumatic Eyes: bilateral eye normal inspection, bilateral eye PERRL, bilateral eye EOMI ENT: normal pharynx, no angioedema, moist mucus membranes, other - Molar with tenderness to palpation Neck: supple Respiratory: lungs clear, normal breath sounds Cardiovascular #1: regular rate, rhythm Cardiovascular #2: 2+ radial (R) Gastrointestinal: normal inspection, normal bowel sounds, non tender, no mass, non-distended Musculoskeletal: back normal, gait/station normal, normal range of motion, other - Heberden's nodes Neurologic: alert, oriented x3, grossly normal Psychiatric: mood/affect normal Skin: warm/dry, other - Scratching her legs Medical Decision Making Diagnostic Impression: Primary Impression: Allergic reaction Qualified Codes: T78.40XA - Allergy, unspecified, initial encounter Additional Impressions: Tooth infection Rheumatoid arthritis Qualified Codes: M06.9 - Rheumatoid arthritis, unspecified ER Course Patient presents with itching after taking amoxicillin. Differential includes anaphylaxis, urticaria, allergic reaction amongst others. She is been on her arthritis medicine for 5 years so this is most likely not the problem. There is no airway compromise at this time and she is normotensive. Labs are indicated. In addition Solu-Medrol and Benadryl with Pepcid will be given. If she does not have symptomatic relief from this considerations for giving a small dose of epinephrine. A dose of Rocephin is given. Patient improved with treatment and no longer itching. Discussed with dentist assessment. Patient stable for outpatient observation and treatment. Advised family she can no longer take amoxicillin. Advised that she may need to have testing for penicillin is indicated. Last Vital Signs Date Time Temp Pulse Resp B/P (MAP) Pulse Ox O2 Delivery O2 Flow Rate FiO2 09/27/19 10:20 97.5 75 16 132/75 99 Room Air Status: improved Disposition: HOME, SELF-CARE Condition: Improved Scripts Cephalexin* (KEFLEX*) 500 Mg Capsule 500 MG ORAL EVERY 6 HOURS, #20 CAP Prov: Jordan Uribe MD 09/27/19 Diphenhydramine Hcl* (BENADRYL*) 25 Mg Capsule 25 MG ORAL Q6H PRN for Itching, #14 CAP Prov: Jordan Uribe MD 09/27/19 Prednisone* (PREDNISONE*) 20 Mg Tablet 40 MG ORAL DAILY, #6 TAB Prov: Jordan Uribe MD 09/27/19 Jordan Uribe MD Sep 27, 2019 08:01
[2019-09-27 08:12] LABS: BASOPHILS % (AUTO) 0.4 % (0.0-2.0); EOSINOPHILS % (AUTO) 1.2 % (0.0-3.0); HEMATOCRIT 38.2 % (37.0-47.0); HEMOGLOBIN 12.8 G/DL (12.0-16.0); LYMPHOCYTES % (AUTO) 17.1 % (20.0-45.0); MEAN CORPUSCULAR VOLUME 93 FL (80-99); MONOCYTES % (AUTO) 8.2 % (1.0-10.0); NEUTROPHILS % (AUTO) 73.2 % (45.0-75.0); PLATELET COUNT 290 K/UL (150-450); RED BLOOD COUNT 4.13 M/UL (4.20-5.40); RED CELL DISTRIBUTION WIDTH 12.1 % (11.6-14.8); WHITE BLOOD COUNT 8.2 K/UL (4.8-10.8)
[2019-09-27 08:28] LABS: ANION GAP 10 mmol/L (5-15); BLOOD UREA NITROGEN 19 mg/dL (7-18); CALCIUM 8.5 MG/DL (8.5-10.1); CARBON DIOXIDE 25 MMOL/L (21-32); CHLORIDE 107 MMOL/L (98-107); CREATININE 0.9 MG/DL (0.55-1.30); POTASSIUM 3.9 MMOL/L (3.5-5.1); SODIUM 142 MMOL/L (136-145)
[2019-09-27 08:33] LABS: ALANINE AMINOTRANSFERASE 22 U/L (12-78); ALBUMIN 3.4 G/DL (3.4-5.0); ALBUMIN/GLOBULIN RATIO 0.8 (1.0-2.7); ALKALINE PHOSPHATASE 65 U/L (46-116); ASPARTATE AMINO TRANSFERASE 17 U/L (15-37); BILIRUBIN,TOTAL 0.3 MG/DL (0.2-1.0)
[2019-09-27] MEDS ORDERED: cefTRIAXone 1 GM in NS 55 ML IVPB ONE (09:45)
[2019-09-27] MEDS ORDERED: PREDNISONE20 MG ORAL (10:03)
[2019-09-27] MEDS ORDERED: CEPHALEXIN500 MG ORAL (10:03)
[2019-09-27] MEDS ORDERED: BENADRYL25 MG ORAL (10:03)
[2019-09-27 10:20] VITALS: BP 132/75
== END 2019-09-27 10:20 | disposition home or self-care (01) ==
LOC: EMR 08:02
DX: K04.7 Periapical abscess without sinus (principal); T36.0X5A Adverse effect of penicillins, initial encounter; M06.9 Rheumatoid arthritis, unspecified; I10 Essential (primary) hypertension; Y92.9 Unspecified place or not applicable; Z88.5 Allergy status to narcotic agent
CPT/HCPCS: 36415; 80053; 85025; 96365; 96375; 99284; J0696; J1200; J2930; S0028